=== PATIENT | female | born 1990 | race Caucasian/White ===

== ENCOUNTER 2019-09-05 10:47 | Observation (INO) | payer OTHER ==
[~2019-09-05] VITALS: Ht 165 cm; Wt 71.7 kg
[2019-09-05 10:31] VITALS: BP 121/69
[2019-09-05] MEDS ORDERED: RINGERS SOLUTION,LACTATED 1,000 ML IV SCH (11:10)
== END 2019-09-05 15:55 | disposition home or self-care (01) ==
LOC: 4S 10:47
PROVIDERS: ADMIT Obstetrics & Gynecology; ATTEND Obstetrics & Gynecology
DX: O41.03X0 Oligohydramnios, third trimester, not applicable or unspecified (principal); Z3A.38 38 weeks gestation of pregnancy
CPT/HCPCS: 59025; 76811; G0378; J7120

== ENCOUNTER 2019-09-11 14:52 | Inpatient (IN) | payer OTHER ==
[~2019-09-11] VITALS: Ht 165 cm; Wt 71.2 kg
[2019-09-11] MEDS ORDERED: OXYTOCIN 30 UNITS/LACT RINGERS 500 ML IV PRN (15:48)
[2019-09-11] MEDS ORDERED: OXYTOCIN 30 UNITS/LACT RINGERS 500 ML IV ONE (15:48)
[2019-09-11] MEDS ORDERED: RINGERS SOLUTION,LACTATED 1,000 ML IV PRN (15:48)
[2019-09-11] MEDS ORDERED: PREN-217 PO (15:52)
[2019-09-11 15:56] VITALS: BP 121/68
[2019-09-11] MEDS ORDERED: FentaNYL CITRATE-PF 100 MCG/2 ML VIAL IVP PRN (16:00)
[2019-09-11] MEDS ORDERED: CITRIC ACID/SODIUM CITRATE 30 ML SOLUTION UDCUP PO PRN (16:00)
[2019-09-11] MEDS ORDERED: LIDOCAINE/PF 1% 30 ML VIAL INJ PRN (16:00)
[2019-09-11] MEDS ORDERED: METHYLERGONOVINE MALEATE 0.2 MG/ML VIAL IM PRN (16:00)
[2019-09-11] MEDS ORDERED: METOCLOPRAMIDE HCL 5 MG/ML 2 ML VIAL IVP PRN (16:00)
[2019-09-11] MEDS ORDERED: CARBOPROST TROMETHAMINE 250 MCG/ML AMP IM PRN (16:00)
[2019-09-11 16:31] LABS: BASOPHILS % (AUTO) 0.4 % (0.0-2.0); EOSINOPHILS % (AUTO) 0.6 % (1.0-6.0); HEMATOCRIT 33.6 % (36-46); HEMOGLOBIN 11.5 g/dL (12.0-16.0); LYMPHOCYTES # (AUTO) 1.2 K/uL (1.0-4.8); LYMPHOCYTES % (AUTO) 12.2 % (22.0-44.0); MEAN CORPUSCULAR HEMOGLOBIN 32.8 pg (26.0-34.0); MEAN CORPUSCULAR HGB CONC 34.2 G/dL (31.0-37.0); MEAN CORPUSCULAR VOLUME 96 fL (80-100); MONOCYTES # (AUTO) 0.8 K/uL (0.1-1.0); MONOCYTES % (AUTO) 8.2 % (2.0-9.0); NEUTROPHILS # (AUTO) 7.5 K/uL (1.8-7.7); NEUTROPHILS % (AUTO) 78.6 % (40.0-70.0); PLATELET COUNT (AUTO)-OB 186 K/uL (150-450); RED BLOOD CELL COUNT(AUTO) 3.51 MIL/uL (4.00-5.20); RED CELL DISTRIBUTION WIDTH 12.9 % (11.5-14.5)
[2019-09-11] MEDS: RINGERS SOLUTION,LACTATED 1,000 ML IV SCH ×3 (16:43→23:13)
[2019-09-11] MEDS ORDERED: ROPIVACAINE HCL/PF 0.2% 100 ML ED ONE (17:52)
[2019-09-11] MEDS ORDERED: ROPIVACAINE HCL/PF 0.2% 100 ML ED PRN (18:12)
[2019-09-11] MEDS ORDERED: ONDANSETRON HCL 4 MG/2 ML VIAL IVP PRN (18:15)
[2019-09-11] MEDS ORDERED: NALBUPHINE HCL 10 MG/ML VIAL IVP PRN (18:15)
[2019-09-11] MEDS ORDERED: DiphenhydrAMINE HCL 50 MG/ML VIAL IVP PRN (18:15)
[2019-09-11] MEDS ORDERED: OXYGEN THERAPY IH SCH (20:00)
[2019-09-12] MEDS ORDERED: MINERAL OIL 30 ML UDCUP VG ONE (01:45)
[2019-09-12] MEDS ORDERED: CeFAZolin 2 GM/DEXTROSE 50 ML IV ONE (06:15)
[2019-09-12] MEDS ORDERED: BENZOCAINE 20%/MENTHOL 56 GM SPRAY CANISTER TP PRN (06:45)
[2019-09-12] MEDS ORDERED: ACETAMINOPHEN/CODEINE 300-30 MG TABLET PO PRN ×2 (06:45)
[2019-09-12] MEDS ORDERED: GLYCERIN/WITCH HAZEL LEAF 40 PADS JAR TP PRN (06:45)
[2019-09-12] MEDS: LANOLIN 7 GM OINTMENT TP PRN (07:10)
[2019-09-12] MEDS: IBUPROFEN 800 MG TABLET PO SCH ×3 (07:11→20:13)
[2019-09-12] MEDS: MAGNESIUM HYDROXIDE SUSPENSION 30 ML UDCUP PO SCH ×2 (10:10→20:12)
[2019-09-13] MEDS: IBUPROFEN 800 MG TABLET PO SCH ×2 (02:10→08:25)
[2019-09-13] MEDS: LANOLIN 7 GM OINTMENT TP PRN (04:27)
[2019-09-13] MEDS: MAGNESIUM HYDROXIDE SUSPENSION 30 ML UDCUP PO SCH (08:25)
[2019-09-13] MEDS ORDERED: IBUP-2070 PO (09:05)
[2019-09-13] MEDS ORDERED: DOCU-275 PO (09:05)
== END 2019-09-13 10:50 | disposition home or self-care (01) | DRG 807 ==
LOC: 4S 14:52 → OBSVTOIN 14:52
PROVIDERS: ADMIT Obstetrics & Gynecology; ATTEND Obstetrics & Gynecology
PROC: 10D07Z6 Extraction of Products of Conception, Vacuum, Via Natural or Artificial Opening (ICD-10-PCS; principal; 2019-09-12)
PROC: 0W8NXZZ Division of Female Perineum, External Approach (ICD-10-PCS; 2019-09-12)
PROC: 3E0R3BZ Introduction of Anesthetic Agent into Spinal Canal, Percutaneous Approach (ICD-10-PCS; 2019-09-12)
PROC: 00HU33Z Insertion of Infusion Device into Spinal Canal, Percutaneous Approach (ICD-10-PCS; 2019-09-12)
DX: O80 Encounter for full-term uncomplicated delivery (principal); Z37.0 Single live birth; Z3A.39 39 weeks gestation of pregnancy
CPT/HCPCS: 86850; 86900; 86901; J0690; J2590; J2795; J7120